=== PATIENT | male | born 1990 | race Caucasian/White ===

== ENCOUNTER 2017-01-04 12:00 | Emergency (ER) | payer MEDICAID ==
[~2017-01-04] VITALS: Ht 162.6 cm; Wt 67.1 kg
--- NOTE | 2017-01-04 12:10 | NUR ---
Patient ambulated to bed 07.
--- NOTE | 2017-01-04 12:15 | NUR ---
PATIENT TOOK SOME KIND OF ANTACID X1 HOUR AGO AND STARTED HAVING THROAT DISCOMFORT,BILAT. EYE SWELLING,MINIMAL SOB. LUNGS CLEAR TO AUSCULTATE. DENIES N/V/D; SKIN IS PINK/WARM/DRY; AAOX4 WITH EVEN AND STEADY GAIT; LUNGS CLEAR BL; HR EVEN AND REGULAR; PT DENIES ANY FEVER, CP OR COUGH AT THIS TIME; PATIENT STATES PAIN OF 0/10 AT THIS TIME; PATIENT POSITIONED FOR COMFORT; HOB ELEVATED; BEDRAILS UP X2; BED DOWN. ALL MONITORS IN PLACED.
--- NOTE | 2017-01-04 12:16 | NUR ---
ERMD AT BEDSIDE EVAL. PATIENT FOR ALLERGIC REACTION TO ANTACID. BILAT. EYE SWELLING/MINIMAL SOB/THROAT DISCOMFORT. MONITORED
[2017-01-04] MEDS ORDERED: NACL 0.9% 1,000 ML IV ONE (12:17)
--- NOTE | 2017-01-04 12:17 | NUR ---
Dr. Gabriel evaluating patient at bedside.
[2017-01-04 12:18] VITALS: BP 154/97
[2017-01-04] MEDS ORDERED: diphenhydrAMINE 50 MG/ML VIAL IVP ONE (12:20)
[2017-01-04] MEDS ORDERED: FAMOTIDINE 20 MG/2 ML VIAL IVP ONE (12:20)
[2017-01-04] MEDS ORDERED: methylPREDNISolone SS 125 MG in WATER STERILE 2 ML IV ONE (12:20)
--- NOTE | 2017-01-04 12:51 | NUR ---
PT VERBALIZES RELIEF FROM HIS THROAT TIGHTNESS;NO ACUTE DISTRESS NOTED ;WILL CONTINUE TO MONITOR PT.
--- NOTE | 2017-01-04 13:14 | NUR ---
PT AMBULATED TO RESTROOM;
[2017-01-04 13:40] VITALS: BP 107/63
--- NOTE | 2017-01-04 13:40 | NUR ---
Patient discharged with v/s stable. Written and verbal after care instructions given and explained. Patient alert, oriented and verbalized understanding of instructions. Ambulatory with steady gait. All questions addressed prior to discharge. ID band removed. Patient advised to follow up with PMD. Rx of PREDNISONE, DIPHENHYDRAMINE given. Patient educated on indication of medication including possible reaction and side effects. Opportunity to ask questions provided and answered.
== END 2017-01-04 13:40 | disposition home or self-care (01) ==
LOC: MED 12:00
DX: R22.0 Localized swelling, mass and lump, head (principal); T47.1X5A Adverse effect of other antacids and anti-gastric-secretion drugs, initial encounter; R03.0 Elevated blood-pressure reading, without diagnosis of hypertension; Y92.89 Other specified places as the place of occurrence of the external cause
CPT/HCPCS: 96361; 96374; 96375; 99284; J1200; J2930; J3490; J7030

== ENCOUNTER 2018-10-25 18:31 | Emergency (ER) | payer SELFPAY ==
[~2018-10-25] VITALS: Ht 167.6 cm; Wt 70.3 kg
[2018-10-25 18:37] VITALS: BP 128/87
--- NOTE | 2018-10-25 18:43 | NUR ---
VSS; PT NOT IN DISTRESS; AMB TO LOBBY ALONE
--- NOTE | 2018-10-25 19:58 | NUR ---
1957--- CALL, PATIENT LEFT WITHOUT BEING SEEN BY ER PROVIDER. NO FURTHER CARE PROVIDED FOR PATIENT. 1909--- CALL, NO ANSWER. 1914--- CALL, NO ANSWER. Addendum: 10/25/18 at 2025 by MEDDCV 1857--- CALL, PATIENT LEFT WITHOUT BEING SEEN BY ER PROVIDER. NO FURTHER CARE PROVIDED FOR PATIENT. 1909--- CALL, NO ANSWER. 1914--- CALL, NO ANSWER.
== END 2018-10-25 18:58 | disposition left against medical advice (07) ==
LOC: MED 18:31
DX: T39.315A Adverse effect of propionic acid derivatives, initial encounter (principal); Z53.21 Procedure and treatment not carried out due to patient leaving prior to being seen by health care provider; Y92.89 Other specified places as the place of occurrence of the external cause

== ENCOUNTER 2019-10-15 11:48 | Emergency (ER) | payer MEDICAID ==
[~2019-10-15] VITALS: Ht 170.2 cm; Wt 68.5 kg
--- NOTE | 2019-10-15 11:50 | NUR ---
PT TO ER BED 4
[2019-10-15 11:57] VITALS: BP 128/75
--- NOTE | 2019-10-15 12:00 | NUR ---
AMBULATED TO BED 4, STEADY GAIT.
[2019-10-15] MEDS ORDERED: EPINEPHrine 1:1000 - 1 MG/ML AMP IM ONE (12:05)
--- NOTE | 2019-10-15 12:05 | NUR ---
29 Y/M PRESENTS TO ED FOR ALLERGIC REACTION. PT HAVING SOB 1 HOUR POST INGESTION OF "NORDINIET, ANALGESICO," PT TOOK MEDICATION TO ALLEVIATE HEADACHE. PT TOOK BENADRYL 30 MINS PRIOR TO ARRIVAL TO ED. PT TACHYPNIC AND TACHYCARDIC. O2-94. PT PRESENTED WITH LABORED BREATHING. " FEEL BALL IN THROAT". LUNGS CLEAR, ABD SOFT AND NONDISTENDED. ALLERGIES- TYLENOL, MOTRIN, NAPROSYN, AND ADVIL PMH- DENIES
--- NOTE | 2019-10-15 12:05 | NUR ---
PT PLACED ON 3 LEAD ECG, PULSE OX AND ON 2 L NC
--- NOTE | 2019-10-15 12:06 | NUR ---
DR. PEDRO MADE AWARE OF ALLERGIC RC WILL ORDER MEDS. PT ON 3 LEAD ECG AND PULSE OX.
[2019-10-15] MEDS ORDERED: methylPREDNISolone SS 125 MG/2 ML VIAL IVP ONE (12:10)
[2019-10-15] MEDS ORDERED: NACL 0.9% 1,000 ML IV ONE (12:30)
--- NOTE | 2019-10-15 13:24 | NUR ---
DR. CARNES MADE AWARE THAT PTS MEETS SEPSIS CRITERIA, LOW BP, TACHY, FEBRILE. STATED "THATS NORMAL WITH AN ALLERGIC REACTION"
--- NOTE | 2019-10-15 13:27 | NUR ---
DR. CARNES AT BEDSIDE.
[2019-10-15 13:50] VITALS: BP 99/48
--- NOTE | 2019-10-15 13:51 | NUR ---
Patient discharged with v/s stable. Written and verbal after care instructions given and explained. Patient alert, oriented and verbalized understanding of instructions. Ambulatory with steady gait. All questions addressed prior to discharge. ID band removed. Patient advised to follow up with PMD. Rx of benadryl, epipen, and prednisone given. Patient educated on indication of medication including possible reaction and side effects. Opportunity to ask questions provided and answered. pts will be drivng him home.
== END 2019-10-15 13:51 | disposition home or self-care (01) ==
LOC: MED 11:48
DX: R22.0 Localized swelling, mass and lump, head (principal); Z88.6 Allergy status to analgesic agent; Z88.8 Allergy status to other drugs, medicaments and biological substances; Y92.89 Other specified places as the place of occurrence of the external cause
CPT/HCPCS: 96372; 96374; 99285; J0171; J2930; J7030

== ENCOUNTER 2020-08-01 03:48 | Inpatient (IN) | payer MEDICAID, SELFPAY ==
[~2020-08-01] VITALS: Ht 162.6 cm; Wt 72.6 kg
[2020-08-01 04:00] VITALS: BP 116/60
--- NOTE | 2020-08-01 04:03 | NUR ---
TO LOBBY A/W BED AMBULATORY
--- NOTE | 2020-08-01 05:10 | NUR ---
SEEN AND EXAMINED BY NOEL WITH ORDERS AND CARRIED OUT
[2020-08-01] MEDS ORDERED: MORPHINE SULFATE 4 MG/ML SYR IM ONE (05:15)
[2020-08-01 05:19] LABS: APPEARANCE,URINE CLEAR (CLEAR); BILIRUBIN,URINE NEGATIVE (NEGATIVE); BLOOD, URINE NEGATIVE (NEGATIVE); COLOR,URINE YELLOW (YELLOW); LEUKOCYTE ESTERASE ,URINE NEGATIVE (NEGATIVE); NITRITE, URINE NEGATIVE (NEGATIVE); PH,URINE 5.5 (5.0-9.0); UGLUCOSE NEGATIVE (NEGATIVE)
[2020-08-01 05:30] LABS: RBC,URINE 0-5 /HPF (0-5); WBC,URINE 0-5 /HPF (0-5)
--- NOTE | 2020-08-01 05:40 | NUR ---
MEDICATED PER ERMDS ORDER, TOLERATED WELL
--- NOTE | 2020-08-01 06:00 | NUR ---
FOR CT WITH TECH VIA W/C
--- NOTE | 2020-08-01 06:40 | NUR ---
Blood for labwork drawn from [facility] per ERMDS ORDER. Patient tolerated WELL
[2020-08-01 06:58] LABS: BASOPHILS % (AUTO) 0.1 % (0.0-2.0); EOSINOPHILS % (AUTO) 0.2 % (0.0-4.0); HEMATOCRIT 45.8 % (36-52); LYMPHOCYTES # (AUTO) 1.1 K/uL (2.0-11.5); LYMPHOCYTES % (AUTO) 7.4 % (20.5-51.1); MEAN CORPUSCULAR HEMOGLOBIN 31 pg (27-31); MEAN CORPUSCULAR HGB CONC 35 g/dL (33-37); MEAN CORPUSCULAR VOLUME 89.3 fL (80-94); MONOCYTES # (AUTO) 0.6 K/uL (0.8-1.0); MONOCYTES % (AUTO) 4.4 % (1.7-9.3); NEUTROPHILS # (AUTO) 12.8 K/uL (1.8-7.7); NEUTROPHILS % (AUTO) 87.9 % (42.2-75.2); PLATELET COUNT (AUTO) 308 K/uL (140-450); RED BLOOD CELL COUNT(AUTO) 5.13 MIL/uL (4.20-6.10); RED CELL DISTRIBUTION WIDTH 12.9 % (11.6-13.7); WHITE BLOOD COUNT (AUTO) 14.6 K/uL (4.8-10.8)
[2020-08-01 07:22] LABS: ALBUMIN 4.6 g/dL (3.4-5.0); ANION GAP 13.9 (8-16); CARBON DIOXIDE 26.8 mmol/L (21-32); CREATININE 0.9 mg/dL (0.6-1.3); POTASSIUM 3.7 mmol/L (3.5-5.1); TOTAL BILIRUBIN 0.5 mg/dL (0.0-1.0)
[2020-08-01] MEDS ORDERED: NACL 0.9% 1,000 ML IV ONE (07:25)
[2020-08-01] MEDS ORDERED: PIPERACILLIN/TAZOBACTAM 3.375 GM in DEXTROSE 5% 50 ML IV ONE (07:25)
[2020-08-01] MEDS ORDERED: ONDANSETRON 4 MG ODT PO ONE (07:25)
[2020-08-01] MEDS ORDERED: PIPERACILLIN/TAZOBACTAM 3.375 GM VIAL IV ONE (07:33)
[2020-08-01] MEDS ORDERED: ONDANSETRON 4 MG/2 ML VIAL IVP ONE (07:35)
[2020-08-01] MEDS ORDERED: ONDANSETRON 4 MG/2 ML VIAL ONE ×2 (07:41→10:00)
--- NOTE | 2020-08-01 09:09 | NUR ---
RUSS SWAB COLLECTED AND GIVEN TO JAEL MARTIN.
[2020-08-01] MEDS ORDERED: LIDOCAINE 1% 500 MG/50 ML VIAL ONE (09:35)
[2020-08-01] MEDS ORDERED: BUPIVACAINE-MPF/EPI 0.25% 10 ML VIAL INJ ONE ×2 (09:36)
--- NOTE | 2020-08-01 09:39 | NUR ---
PT TAKEN BY OR NURSE TO SURGERY AT THIS TIME. PT STABLE.
[2020-08-01] MEDS ORDERED: fentaNYL citrate 0.05 MG/ML VIAL ONE (10:00)
[2020-08-01] MEDS ORDERED: SEVOFLURANE 250 ML BTL INH ONE (10:00)
[2020-08-01] MEDS ORDERED: METOCLOPRAMIDE 10 MG/2 ML INJ VIAL ONE (10:00)
[2020-08-01] MEDS ORDERED: NEOSTIGMINE 1:1000 10 MG/10 ML VIAL ONE (10:00)
[2020-08-01] MEDS ORDERED: MIDAZOLAM 2 MG/2 ML VIAL ONE (10:00)
[2020-08-01] MEDS ORDERED: SUCCINYLCHOLINE CHLORIDE 200 MG/10 ML VIAL IVP ONE (10:00)
[2020-08-01] MEDS ORDERED: ROCURONIUM 50 MG/5 ML VIAL IV ONE (10:00)
[2020-08-01] MEDS ORDERED: PROPOFOL 200 MG/20 ML VIAL IV ONE (10:00)
[2020-08-01] MEDS ORDERED: DEXAMETHASONE 4 MG/ML VIAL ONE (10:00)
[2020-08-01] MEDS ORDERED: GLYCOPYRROLATE 0.2 MG/ML VIAL ONE (10:00)
[2020-08-01] MEDS ORDERED: HYDROmorphone 1 MG/ML AMP IVP PRN (10:50)
[2020-08-01] MEDS ORDERED: ONDANSETRON 4 MG/2 ML VIAL IVP PRN (10:50)
[2020-08-01] MEDS: LACTATED RINGERS 1,000 ML IV SCH ×2 (10:50→20:44)
[2020-08-01] MEDS ORDERED: MEPERIDINE 25 MG/ML SYR IVP PRN (10:50)
[2020-08-01] MEDS ORDERED: diphenhydrAMINE 50 MG/ML VIAL IVP PRN (10:50)
[2020-08-01] MEDS: HYDROmorphone PFS 2 MG/ML SYR ONE ×2 (11:40→11:50)
[2020-08-01 12:20] VITALS: BP 119/62
--- NOTE | 2020-08-01 12:20 | NUR ---
RECEIVED REPORT FROM OR NURSE TEMITOPE PATIENT IS AAOX4 S/P LAP APPENDECTOMY WITH 3 DERMA BAND ON THE LEFT UPPER AND LOWER ABDOMEN AND NEAR THE NAVEL AREA. ON ROOM AIR, SKIN INTACT IV INTACT AND PATENT ON THE RIGHT AC, ON CLEAR LIQUID DIET, NO KNOWN HISTORY ALLERGY TP ACETAMINOPHEN, IBUPROFEN AND NAPROXEN. AMBULATORY, VITAL SIGNS TAKEN BP 110/62 MA 96 RR 20 TEMP 97.8 AND OXYGEN SATURATION AT 93%. ASSISTED TO BED ORIENTED TO ROOM, SAFETY MEASURES IN PLACE AND CALL LIGHT WITHIN REACH. WILL CONTINUE TO MONITOR.
[2020-08-01] MEDS: PIPERACILLIN/TAZOBACTAM 3.375 GM in DEXTROSE 5% 50 ML IV SCH ×2 (12:59→17:44)
--- NOTE | 2020-08-01 13:00 | NUR ---
MRSA SWAB OF BOTH NARES DONE AND SENT TO LAB.
[2020-08-01] MEDS ORDERED: POTASSIUM CHLORIDE 10 MEQ TABER PO PRN (15:00)
[2020-08-01] MEDS ORDERED: guaiFENesin DM 200/20 MG-10 ML 10 ML UDC PO PRN (15:00)
[2020-08-01] MEDS ORDERED: ZOLPIDEM 5 MG TAB PO PRN (15:00)
--- NOTE | 2020-08-01 15:00 | NUR ---
HOOK TO SODIUM CHLORIDE 0.9% AT 60MLS/HR INFUSING WELL.
[2020-08-01] MEDS ORDERED: traMADol 50 MG TAB PO PRN (15:05)
[2020-08-01] MEDS: NACL 0.9% 1,000 ML IV SCH (15:32)
[2020-08-01 16:00] VITALS: BP 115/69
--- NOTE | 2020-08-01 18:00 | NUR ---
MEDICATION DUE GIVEN PATIENT IS STABLE ABLE TO AMBULATE, NO DISTRESS NOTED AND DENIES PAIN.
--- NOTE | 2020-08-01 19:28 | NUR ---
ENDORSED TO NIGHT NURSE FOR CONTINUITY OF CARE. PT IS STABLE
--- NOTE | 2020-08-01 19:30 | NUR ---
RECEIVED BEDSIDE REPORT FROM DAY RN. PT IS AAOX4 DJIBOUTIAN SPEAKING ABLE TO MAKE NEEDS KNOWN. 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 NO S/S OF INFECTION. ON ROOM AIR, IV ON RAC IVF PER ORDERS. ON REGULAR DIET, NO KNOWN HISTORY ALLERGY TP ACETAMINOPHEN, IBUPROFEN AND NAPROXEN. AMBULATORY, RESPIRATIONS ARE EQUAL AND UNLABORED ON ROOM AIR. LUNG SOUNDS ARE CLEAR. POC DISCUSSED WITH PT. SAFETY MEASURES IN PLACE AND CALL LIGHT WITHIN REACH. WILL CONTINUE TO MONITOR.
[2020-08-01 20:00] VITALS: BP 112/53
--- NOTE | 2020-08-01 21:30 | NUR ---
PT RESTING IN BED TALKING ON CELLPHONE. POC REVIEWED WITH PT. ENCOURAGE TO USE IS AND AMBULATE PT VERBALIZED UNDERSTANDING. ALL NEEDS MET. CALL LIGHT IS WITHIN REACH.
--- NOTE | 2020-08-02 | NUR ---
PT SLEEPING COMFORTABLY IN BED WITH EYES CLOSED. CHEST RISE AND FALL NOTED. CALL LIGHT IS WITHIN REACH.
[2020-08-02] MEDS: PIPERACILLIN/TAZOBACTAM 3.375 GM in DEXTROSE 5% 50 ML IV SCH ×2 (00:17→05:23)
[2020-08-02] MEDS: LACTATED RINGERS 1,000 ML IV SCH (00:20)
--- NOTE | 2020-08-02 02:00 | NUR ---
ROUNDS MADE. PT IS SLEEPING COMFORTABLY IN BED CHEST RISE AND FALL NOTED. CALL LIGHT IS WITHIN REACH.
[2020-08-02 04:00] VITALS: BP 105/66
--- NOTE | 2020-08-02 04:00 | NUR ---
VSS. PT DENIES ANY DISCOMFORT. ALL NEEDS MET. CALL LIGHT IS WITHIN REACH.
[2020-08-02 06:15] VITALS: BP 105/66
--- NOTE | 2020-08-02 07:30 | NUR ---
BEDSIDE REPORT GIVEN PT ENDORSED IN STABLE CONDITION.
--- NOTE | 2020-08-02 07:32 | NUR ---
RECEIVED REPORT FROM NIGHT NURSE PATIENT IS AAOX4 , ON ROOM AIR, AMBULATORY, SKIN INTACT EXCEPT FOR 3 DERMA BAND ON THE ABDOMEN. IV INTACT AND PATENT ON RIGHT AC, SAFETY MEASURES IN PLACE AND CALL LIGHT WITHIN REACH.WILL CONTINUE TO MONITOR
[2020-08-02 08:00] VITALS: BP 104/52
[2020-08-02 08:35] LABS: BASOPHILS % (AUTO) 0.2 % (0.0-2.0); EOSINOPHILS % (AUTO) 0.1 % (0.0-4.0); HEMATOCRIT 42.4 % (36-52); HEMOGLOBIN 14.8 g/dL (12.0-18.0); LYMPHOCYTES # (AUTO) 1.9 K/uL (2.0-11.5); LYMPHOCYTES % (AUTO) 17.1 % (20.5-51.1); MEAN CORPUSCULAR HEMOGLOBIN 32 pg (27-31); MEAN CORPUSCULAR HGB CONC 35 g/dL (33-37); MEAN CORPUSCULAR VOLUME 90.3 fL (80-94); MONOCYTES # (AUTO) 0.9 K/uL (0.8-1.0); MONOCYTES % (AUTO) 8.5 % (1.7-9.3); NEUTROPHILS # (AUTO) 8.2 K/uL (1.8-7.7); NEUTROPHILS % (AUTO) 74.1 % (42.2-75.2); PLATELET COUNT (AUTO) 304 K/uL (140-450); RED CELL DISTRIBUTION WIDTH 12.9 % (11.6-13.7); WHITE BLOOD COUNT (AUTO) 11.1 K/uL (4.8-10.8)
[2020-08-02] MEDS: NACL 0.9% 1,000 ML IV SCH (08:46)
--- NOTE | 2020-08-02 08:51 | NUR ---
MEDICATION DUE GIVEN CHECK VITAL SIGNS BP 104/52 AND SD 70 NO DISTRESS NOTED PATIENT IS AWAKE AND ALERT. SAFETY MEASURES IN PLACE CALL LIGHT WITHIN REACH.
--- NOTE | 2020-08-02 08:52 | NUR ---
PATIENT HAS BEEN SCREENED AND CATEGORIZED LOW NUTRITION RISK. PATIENT WILL BE SEEN WITHIN 7 DAYS OF ADMISSION. 08/07/[address]
[2020-08-02 08:54] LABS: ANION GAP 14.4 (8-16); CARBON DIOXIDE 26.7 mmol/L (21-32); CREATININE 0.9 mg/dL (0.6-1.3); POTASSIUM 4.1 mmol/L (3.5-5.1)
[2020-08-02] MEDS ORDERED: PANTOPRAZOLE 40 MG INJ VIAL IVP SCH (09:00)
--- NOTE | 2020-08-02 10:05 | NUR ---
DR CANO WAS HER TODAY AND CHECKED ON THE PATIENT. PATIENT CAN GO HOME TODAY AND FOLLOW UP WITH DR CANO AFTER 1 WEEK.
[2020-08-02] MEDS ORDERED: HYDR-5122 PO (10:27)
--- NOTE | 2020-08-02 12:21 | NUR ---
PATIENT COMPLAINS OF PAIN 8/10 ON THE SURGICAL SITES. CHECK VITAL SIGNS MANUALLY PRIOR TO MEDICATION. BP 110/78 CT 63
[2020-08-02] MEDS ORDERED: FLU VACCINE QS2020-21 0.5 ML SYR IMVAC PRN (12:35)
--- NOTE | 2020-08-02 13:22 | NUR ---
FLU VACCINE GIVEN TO PATIENT NO ALLERGIES TO EGG AND NO DISTRESS NOTED.
--- NOTE | 2020-08-02 14:05 | NUR ---
DISCHARGE PLANNING: THIS IS A 30 Y/O FEMALE PATIENT FROM HOME, WHO CAME IN DUE TO RIGHT LOWER ABDOMINAL PAIN. NO PAST MEDICAL HISTORY. INITIAL DIAGNOSIS OF APPENDICITIS. S/P LAP APPENDECTOMY BY DR. GRANT 08/01/2020. ON REGULAR DIET. FOR DC TODAY.
[2020-08-02] MEDS ORDERED: TRAM50TA1 PO (14:25)
--- NOTE | 2020-08-02 14:35 | NUR ---
DISCHARGE INSTRUCTIONS GIVEN TO PATIENT AT THE BEDSIDE WITH [facility] REPAIR TECHNICIAN YAMIL ID# [id number] INSTRUCTED PATIENT TO FOLLOW UP WITH PCP 3-5 DAYS AND TO FOLLOW UP WITH DR CANO AFTER 1 WEEK. PAIN MEDICATION SENT TO PREFERRED PHARMACY. ENCOURAGE TO SEEK MEDICAL HELP INCASE OF EMERGENCY. IV INTACT AND COMPLETE NO BLEEDING, REMOVED ID BANDS, CHANGED PATIENT TO OWN CLOTHES AND ANSWERED ALL PATIENT QUESTION, PT TOOK ALL HIS BELONGINGS. ESCORTED TO FRONT LOBBY VIA WHEELCHAIR . PT IS DISCHARGED HOME ACCOMPANIED BY . PT IS STABLE.
== END 2020-08-02 14:35 | disposition home or self-care (01) | DRG 710 ==
LOC: MED 03:48 → MMU 08:58 → MTU 09:32
PROVIDERS: ADMIT Family Medicine; ATTEND Family Medicine
PROC: 0DTJ4ZZ Resection of Appendix, Percutaneous Endoscopic Approach (ICD-10-PCS; principal; 2020-08-01 09:30)
DX: A41.9 Sepsis, unspecified organism (principal); K35.80 Unspecified acute appendicitis; E86.0 Dehydration; Z20.828 Contact with and (suspected) exposure to other viral communicable diseases; Z88.8 Allergy status to other drugs, medicaments and biological substances; Z88.1 Allergy status to other antibiotic agents
CPT/HCPCS: 36415; 80048; 80053; 81001; 82374; 83690; 85025; 86886; 86900; 86901; 87081; 87086; 88304; 96372; 96374; 99285; C9113; J0330; J1100; J1170; J2001; J2250; J2270; J2405; J2543; J2704; J2710; J2765; J3010; J3490; J7030; J7060; Q0162

== ENCOUNTER 2021-09-29 18:14 | Emergency (ER) | payer MEDICAID, SELFPAY ==
[~2021-09-29] VITALS: Ht 162.6 cm; Wt 75.3 kg
[~2021-09-29 18:14] MED LIST: TRAM50TA1 PO
[2021-09-29 18:35] VITALS: BP 142/82
--- NOTE | 2021-09-29 18:40 | NUR ---
PT AMB TO BED 9.
--- NOTE | 2021-09-29 18:44 | NUR ---
LARRY FINCH BEDSIDE EVALUATING PT
--- NOTE | 2021-09-29 18:55 | NUR ---
XRAY AT PATIENT BEDSIDE
--- NOTE | 2021-09-29 18:55 | NUR ---
COVID RUSS AND INFLUENZA SWAB COLLECTED AND WALKED OVER TO LAB
--- NOTE | 2021-09-29 19:10 | NUR ---
31Y MALE BIB SELF C/O FEVER, COUGH, MID CHEST PAIN THAT RADIATES TO HIS L AND R SHOULDER, HAIRSTON, SORE THROAT, BODY ACHE, RUNNY NOSE X 4 DAYS. PT STATED HE HAS A WET COUGH AND WHEN HE COUGHS HE EXPERINCES THE CHEST PAIN. BREATH SOUNDS CLEAR UPON ASCULATION. PMH:DENIES NKA
--- NOTE | 2021-09-29 19:15 | NUR ---
Pt report given to RIGOBERTO ALMEIDA. Transfer of care at this time.
[2021-09-29] MEDS ORDERED: PROM118S5 PO (19:42)
[2021-09-29] MEDS ORDERED: ALBU0.0912 IH (19:42)
[2021-09-29] MEDS ORDERED: LORA10TA19 PO (19:42)
--- NOTE | 2021-09-29 20:14 | NUR ---
Fred waldron in EDM - 09/29/21 at [address] Jones examining patient.
[2021-09-29 20:19] VITALS: BP 142/82
--- NOTE | 2021-09-29 20:19 | NUR ---
Patient discharged with v/s stable. Written and verbal after care instructions given and explained. Patient alert, oriented and verbalized understanding of instructions. Ambulatory with steady gait. All questions addressed prior to discharge. ID band removed. Patient advised to follow up with PMD. Rx of Albuterol Sulfate, Loratadine, and Promethazine/Dextromethorphan given. Patient educated on indication of medication including possible reaction and side effects. Opportunity to ask questions provided and answered. VSS, A/OX4, AMBULATORY, UNLABORED BREATHING, CALM DEMEANOR.
== END 2021-09-29 20:19 | disposition home or self-care (01) ==
LOC: MED 18:14
DX: J10.1 Influenza due to other identified influenza virus with other respiratory manifestations (principal); Z20.822 Contact with and (suspected) exposure to COVID-19; Z79.899 Other long term (current) drug therapy; Z88.6 Allergy status to analgesic agent; Z88.8 Allergy status to other drugs, medicaments and biological substances
CPT/HCPCS: 71045; 87426; 87804; 93005; 99285; Q0092

== ENCOUNTER 2022-03-21 16:14 | Emergency (ER) | payer MEDICAID ==
[~2022-03-21] VITALS: Ht 162.6 cm; Wt 76.3 kg
[~2022-03-21 16:14] MED LIST changes: +ALBU0.0912 IH; +LORA10TA19 PO; +PROM118S5 PO
[2022-03-21 16:31] VITALS: BP 124/79
--- NOTE | 2022-03-21 17:35 | NUR ---
PATIENT LEFT WITHOUT BEING SEEN BY DR. HAYDEN. NO FURTHER CARE PROVIDED FOR PATIENT.
--- NOTE | 2022-03-21 17:35 | NUR ---
FIRST ATTEMPTED TO CALL PT BACK WITH NO ANSWER
--- NOTE | 2022-03-21 18:00 | NUR ---
SECOND ATTEMPTED TO CALL PT BACK WITH NO ANSWER
--- NOTE | 2022-03-21 18:32 | NUR ---
THIRD ATTEMPTED TO CALL PT BACK WITH NO ANSWER
== END 2022-03-21 17:35 | disposition left against medical advice (07) ==
LOC: MED 16:14
DX: T39.315A Adverse effect of propionic acid derivatives, initial encounter (principal); Z53.21 Procedure and treatment not carried out due to patient leaving prior to being seen by health care provider; Y92.89 Other specified places as the place of occurrence of the external cause

== ENCOUNTER 2022-03-22 21:40 | Emergency (ER) | payer MEDICAID ==
[~2022-03-22] VITALS: Ht 162.6 cm; Wt 74.8 kg
[2022-03-22 21:50] VITALS: BP 140/76
--- NOTE | 2022-03-22 21:53 | NUR ---
TO LOBBY A/W BED AMBULATORY
--- NOTE | 2022-03-23 01:17 | NUR ---
PT TAKEN TO BED 12
--- NOTE | 2022-03-23 01:30 | NUR ---
ERMD EXAMINING PT
[2022-03-23] MEDS ORDERED: MORPHINE SULFATE 4 MG/ML SYR IM ONE (01:50)
[2022-03-23] MEDS ORDERED: CYCL-711 PO (02:21)
[2022-03-23] MEDS ORDERED: LID5T TP (02:21)
[2022-03-23 02:52] VITALS: BP 145/69
--- NOTE | 2022-03-23 02:54 | NUR ---
Patient discharged with v/s stable BY ERMD. Written and verbal after care instructions given and explained. Patient verbalized understanding. Ambulatory with steady gait. All questions addressed prior to discharge. Advised to follow up with PMD.
== END 2022-03-23 02:54 | disposition home or self-care (01) ==
LOC: MED 21:40
DX: M54.50 Low back pain, unspecified (principal); Z88.6 Allergy status to analgesic agent; Z88.8 Allergy status to other drugs, medicaments and biological substances; Z79.899 Other long term (current) drug therapy; Z90.49 Acquired absence of other specified parts of digestive tract
CPT/HCPCS: 72100; 81002; 96372; 99283; J2270

== ENCOUNTER 2024-01-12 22:07 | Emergency (ER) | payer MEDICAID, OTHER ==
[~2024-01-12] VITALS: Ht 162.6 cm; Wt 79.4 kg
[~2024-01-12 22:07] MED LIST changes: +CYCL-711 PO; +LID5T TP; +TRAM-748 PO; -TRAM50TA1 PO
[2024-01-12 22:13] VITALS: BP 130/90; PULSE 84; RESP 18; TEMP 98.3; O2SAT 99
[2024-01-12 22:45] LABS: APPEARANCE,URINE CLEAR (CLEAR); BILIRUBIN,URINE NEGATIVE (NEGATIVE); BLOOD, URINE NEGATIVE (NEGATIVE); COLOR,URINE YELLOW (YELLOW); LEUKOCYTE ESTERASE ,URINE NEGATIVE (NEGATIVE); NITRITE, URINE NEGATIVE (NEGATIVE); PROTEIN,URINE NEGATIVE (NEGATIVE); UGLUCOSE NEGATIVE (NEGATIVE); UROBILINOGEN,URINE 0.2 EU/dL (0.2 - 1)
[2024-01-12 23:24] LABS: BASOPHILS % (AUTO) 0.4 % (0.0-2.0); EOSINOPHILS # (AUTO) 0.2 K/uL (0-0.4); HEMATOCRIT 45.6 % (36-52); HEMOGLOBIN 16.5 g/dL (12.0-18.0); LYMPHOCYTES # (AUTO) 3.1 K/uL (2.0-11.5); LYMPHOCYTES % (AUTO) 39.4 % (20.5-51.1); MEAN CORPUSCULAR HEMOGLOBIN 32 pg (27-31); MEAN CORPUSCULAR HGB CONC 36 g/dL (33-37); MONOCYTES # (AUTO) 0.8 K/uL (0.8-1.0); MONOCYTES % (AUTO) 9.8 % (1.7-9.3); NEUTROPHILS # (AUTO) 3.8 K/uL (1.8-7.7); NEUTROPHILS % (AUTO) 48.4 % (42.2-75.2); PLATELET COUNT (AUTO) 289 K/uL (140-450); RED BLOOD CELL COUNT(AUTO) 5.12 MIL/uL (4.20-6.10); RED CELL DISTRIBUTION WIDTH 13.6 % (11.6-13.7)
[2024-01-12 23:34] LABS: ANION GAP 12.9 (8-16); CALCIUM 9.5 mg/dL (8.5-10.1); CARBON DIOXIDE 27.6 mmol/L (21-32); CREATININE 1.2 mg/dL (0.6-1.3); POTASSIUM 3.5 mmol/L (3.5-5.1)
[2024-01-12 23:40] LABS: BILIRUBIN,DIRECT 0.1 mg/dL (0.0-0.3); TOTAL BILIRUBIN 0.6 mg/dL (0.0-1.0); TOTAL PROTEIN, SERUM 7.4 g/dL (6.4-8.2)
[2024-01-12] MEDS ORDERED: ACETAMINOPHEN EXTRA STRENGTH 500 MG TAB ONE (23:45)
[2024-01-12] MEDS: ACETAMINOPHEN EXTRA STRENGTH 500 MG TAB PO ONE (23:53)
[2024-01-13 00:33] VITALS: TEMP 98.3
[2024-01-13] MEDS: DICYCLOMINE 20 MG/2 ML VIAL IM ONE (01:33)
[2024-01-13 02:31] VITALS: BP 119/86; PULSE 79; RESP 14; O2SAT 98
[2024-01-13] MEDS ORDERED: ACET-10509 PO (02:37)
[2024-01-13] MEDS ORDERED: BEN10 PO (02:37)
== END 2024-01-13 02:45 | disposition home or self-care (01) ==
LOC: MED 22:07
DX: R10.32 Left lower quadrant pain (principal); R10.31 Right lower quadrant pain; R11.0 Nausea; R35.0 Frequency of micturition; Z79.1 Long term (current) use of non-steroidal anti-inflammatories (NSAID); Z88.8 Allergy status to other drugs, medicaments and biological substances; Z79.899 Other long term (current) drug therapy
CPT/HCPCS: 36415; 74176; 80048; 80076; 81003; 83690; 85025; 96372; 99285; J0500

== ENCOUNTER 2024-01-28 12:04 | Emergency (ER) | payer OTHER ==
[~2024-01-28] VITALS: Ht 162.6 cm; Wt 79.4 kg
[~2024-01-28 12:04] MED LIST changes: +ACET-10509 PO; +BEN10 PO
[2024-01-28 12:07] VITALS: BP 133/82; PULSE 92; RESP 16; TEMP 97.5; O2SAT 98
[2024-01-28 15:04] VITALS: BP 133/74; PULSE 78; RESP 17; TEMP 98.2; O2SAT 98
== END 2024-01-28 15:27 | disposition home or self-care (01) ==
LOC: MED 12:04
DX: R07.89 Other chest pain (principal); R20.0 Anesthesia of skin; R06.02 Shortness of breath; R42 Dizziness and giddiness; Z79.1 Long term (current) use of non-steroidal anti-inflammatories (NSAID); Z79.899 Other long term (current) drug therapy; Z88.6 Allergy status to analgesic agent
CPT/HCPCS: 71046; 93005; 99283